=== PATIENT | male | born 1995 | race Caucasian/White ===

== ENCOUNTER 2017-12-14 23:26 | Emergency (ER) | payer OTHER ==
[~2017-12-14] VITALS: Ht 182.9 cm; Wt 117.9 kg
[~2017-12-14 23:26] MED LIST: CODEINE 10 MG/118 ML; KETO10TA2 PO
[2017-12-15] MEDS ORDERED: PHENERGAN25 MG PO (07:07)
[2017-12-15] MEDS ORDERED: PEPCID40 MG PO (07:07)
== END 2017-12-15 09:06 | disposition home or self-care (01) ==
LOC: ER 23:26
DX: K29.70 Gastritis, unspecified, without bleeding (principal)

== ENCOUNTER → 2019-05-25 | Emergency (ER) | payer OTHER ==
[~2019-05-25] VITALS: Ht 182.9 cm; Wt 127.0 kg
[~2019-05-25] MED LIST changes: +PEPCID40 MG PO; +PHENERGAN25 MG PO
== END | disposition home or self-care (01) ==
LOC: ER 20:30
DX: G44.201 Tension-type headache, unspecified, intractable (principal)

== ENCOUNTER 2025-03-09 11:27 | Outpatient (CLI) | payer OTHER | END 2025-03-09 11:35 | disposition home or self-care (01) | LOC: RAD 11:27 | PROVIDERS: ATTEND Physical Medicine & Rehabilitation | DX: S86.912D Strain of unspecified muscle(s) and tendon(s) at lower leg level, left leg, subsequent encounter (principal); M75.81 Other shoulder lesions, right shoulder; M75.82 Other shoulder lesions, left shoulder ==